=== PATIENT | male | born 1945 | race Caucasian/White ===

== ENCOUNTER 2021-12-04 15:03 | Inpatient (IN) | payer MEDICARE ==
[2021-12-04] MEDS ORDERED: ACETAMINOPHEN TAB 500 MG TAB PO STA (15:22)
[2021-12-04] MEDS ORDERED: SODIUM CHLORIDE 0.9% 1,000 ML IV STA (15:22)
[2021-12-04] MEDS ORDERED: ALBUTEROL HFA INHALER INHALATION STA (15:22)
[2021-12-04] MEDS ORDERED: IBUPROFEN 600 MG TAB PO STA (15:22)
[2021-12-04 15:36] LABS: HGB 16.3 gm/dL (13.0-17.5); MCH 30.4 pg (25.0-35.0); MCHC 33.2 g/dL (31.0-37.0); MCV 91.6 fL (80.0-100.0); Mean Platelet Volume 8.7; Platelet Count 220 k/uL (150-450); RBC 5.35 m/uL (4.30-5.90); WBC 11.3 k/uL (3.8-10.6)
[2021-12-04 15:45] LABS: Albumin 3.7 g/dL (3.5-5.0); Potassium 4.1 mmol/L (3.5-5.1); Total Bilirubin 0.8 mg/dL (0.2-1.3); Total Protein 6.7 g/dL (6.3-8.2)
--- NOTE | 2021-12-04 15:58 | ED ---
General Adult HPI - General Chief complaint: Upper Respiratory Infection Stated complaint: SOB, covid + Time Seen by Provider: 12/04/21 15:25 Source: patient, EMS, RN notes reviewed, old records reviewed Mode of arrival: EMS Limitations: no limitations - History of Present Illness Initial comments: This is a 76-year-old male who presents emergency Department stating that he started having some shortness of breath and feeling sick approximately 9 days ago. Patient states she's been to 2 emergency departments where he was diagnosed with COVID and given steroids to go home with. Patient states he woke up today and continued to feel bad and short of breath so decided come back to the emergency department. Patient denies any chest pain. Patient denies any fever or chills. Patient denies any abdominal pain patient denies nausea vomiting. Patient states he is on oxygen at home all the time. - Related Data Allergies Allergy/AdvReac Type Severity Reaction Status Date / Time No Known Allergies Allergy Verified 12/04/21 15:29 Review of Systems ROS Statement: Those systems with pertinent positive or pertinent negative responses have been documented in the HPI. ROS Other: All systems not noted in ROS Statement are negative. Past Medical History Past Medical History: COPD History of Any Multi-Drug Resistant Organisms: None Reported Past Surgical History: No Surgical Hx Reported Past Psychological History: No Psychological Hx Reported Smoking Status: Never smoker Past Alcohol Use History: None Reported Past Drug Use History: None Reported General Exam - General Exam Comments Initial Comments: GENERAL: Patient is well-developed and well-nourished. Patient is nontoxic and well- hydrated and is in mild distress. ENT: Neck is soft and supple. No significant lymphadenopathy is noted. Oropharynx is clear. Moist mucous membranes. Neck has full range of motion without eliciting any pain. EYES: The sclera were anicteric and conjunctiva were pink and moist. Extraocular movements were intact and pupils were equal round and reactive to light. Eyelids were unremarkable. PULMONARY: Unlabored respirations. Good breath sounds bilaterally. No audible rales rhonchi or wheezing was noted. CARDIOVASCULAR: There is a regular rate and rhythm without any murmurs gallops or rubs ABDOMEN: Soft and nontender with normal bowel sounds. SKIN: Skin is clear with no lesions or rashes and otherwise unremarkable. NEUROLOGIC: Patient is alert and oriented x3. Cranial nerves II through XII are grossly intact. Motor and sensory are also intact. Normal speech, volume and content. Symmetrical smile. MUSCULOSKELETAL: Normal extremities with adequate strength and full range of motion. No lower extremity swelling or edema. No calf tenderness. LYMPHATICS: No significant lymphadenopathy is noted PSYCHIATRIC: Normal psychiatric evaluation. Limitations: no limitations Course Vital Signs 12/04/21 12/04/21 12/04/21 15:15 16:11 16:20 Temperature 102.2 F H Pulse Rate 113 H 103 H Respiratory 22 26 H 26 H Rate Blood Pressure 145/82 108/80 O2 Sat by Pulse 95 89 L Oximetry Medical Decision Making - Medical Decision Making EKG shows sinus tachycardia at 1 13 bpm NH interval 132 QRS is 72 QT interval 3 50 QTC is 418. Patient's EKG shows no ST segment elevation or depression. X- ray shows right lower lobe infiltrate consistent with pneumonia. I spoke with sounds physician's he agreed to admit the patient and the patient wrote admitting orders. I started the patient on antibiotics in the department and continue them on the floor. New. Patient received 2 L of IV fluids. - Lab Data Result diagrams: 12/04/21 15:04 12/04/21 15:04 Lab Results 12/04/21 12/04/21 12/04/21 Range/Units 15:04 15:04 15:04 WBC 11.3 H (3.8-10.6) k/uL RBC 5.35 (4.30-5.90) m/uL Hgb 16.3 (13.0-17.5) gm/dL Hct 49.0 (39.0-53.0) % MCV 91.6 (80.0-100.0) fL MCH 30.4 (25.0-35.0) pg MCHC 33.2 (31.0-37.0) g/dL RDW 13.0 (11.5-15.5) % Plt Count 220 (150-450) k/uL MPV 8.7 Neutrophils % (Manual) 79 % Band Neuts % (Manual) 7 % Lymphocytes % (Manual) 2 % Monocytes % (Manual) 10 % Metamyelocytes % 3 % Myelocytes % 1 % Neutrophils # (Manual) 9.70 H (1.3-7.7) k/uL Lymphocytes # (Manual) 0.23 L (1.0-4.8) k/uL Monocytes # (Manual) 1.13 H (0-1.0) k/uL Metamyelocytes # (Man) 0.34 H (0) k/uL Myelocytes # (Manual) 0.11 H (0) k/uL Nucleated RBCs 0 (0-0) /100 WBC Manual Slide Review Performed RBC Morphology Normal Sodium 133 L (137-145) mmol/L Potassium 4.1 (3.5-5.1) mmol/L Chloride 96 L (98-107) mmol/L Carbon Dioxide 27 (22-30) mmol/L Anion Gap 10 mmol/L BUN 27 H (9-20) mg/dL Creatinine 1.11 (0.66-1.25) mg/dL Est GFR (CKD-EPI)AfAm 74 (>60 ml/min/1.73 sqM) Est GFR (CKD-EPI)NonAf 64 (>60 ml/min/1.73 sqM) Glucose 140 H (74-99) mg/dL Plasma Lactic Acid Morteza 3.6 H* (0.7-2.0) mmol/L Calcium 8.0 L (8.4-10.2) mg/dL Total Bilirubin 0.8 (0.2-1.3) mg/dL AST 50 (17-59) U/L ALT 26 (4-49) U/L Alkaline Phosphatase 74 (38-126) U/L Troponin I (0.000-0.034) ng/mL Total Protein 6.7 (6.3-8.2) g/dL Albumin 3.7 (3.5-5.0) g/dL 12/04/21 Range/Units 15:04 WBC (3.8-10.6) k/uL RBC (4.30-5.90) m/uL Hgb (13.0-17.5) gm/dL Hct (39.0-53.0) % MCV (80.0-100.0) fL MCH (25.0-35.0) pg MCHC (31.0-37.0) g/dL RDW (11.5-15.5) % Plt Count (150-450) k/uL MPV Neutrophils % (Manual) % Band Neuts % (Manual) % Lymphocytes % (Manual) % Monocytes % (Manual) % Metamyelocytes % % Myelocytes % % Neutrophils # (Manual) (1.3-7.7) k/uL Lymphocytes # (Manual) (1.0-4.8) k/uL Monocytes # (Manual) (0-1.0) k/uL Metamyelocytes # (Man) (0) k/uL Myelocytes # (Manual) (0) k/uL Nucleated RBCs (0-0) /100 WBC Manual Slide Review RBC Morphology Sodium (137-145) mmol/L Potassium (3.5-5.1) mmol/L Chloride (98-107) mmol/L Carbon Dioxide (22-30) mmol/L Anion Gap mmol/L BUN (9-20) mg/dL Creatinine (0.66-1.25) mg/dL Est GFR (CKD-EPI)AfAm (>60 ml/min/1.73 sqM) Est GFR (CKD-EPI)NonAf (>60 ml/min/1.73 sqM) Glucose (74-99) mg/dL Plasma Lactic Acid Morteza (0.7-2.0) mmol/L Calcium (8.4-10.2) mg/dL Total Bilirubin (0.2-1.3) mg/dL AST (17-59) U/L ALT (4-49) U/L Alkaline Phosphatase (38-126) U/L Troponin I <0.012 (0.000-0.034) ng/mL Total Protein (6.3-8.2) g/dL Albumin (3.5-5.0) g/dL Critical Care Time Critical Care Time: Yes Total Critical Care Time: 35 Disposition Clinical Impression: Pneumonia, Sepsis Disposition: ADMITTED IP TO THIS [facility] Referrals: Anna Lopez MD [Primary Care Provider] - 1-2 days Time of Disposition: 16:41
[2021-12-04 16:07] LABS: Band Neutrophils % 7 %; Lymphocytes # (M) 0.23 k/uL (1.0-4.8); Metamyelocytes # (M) 0.34 k/uL (0); Metamyelocytes % 3 %; Monocytes # (M) 1.13 k/uL (0-1.0); Myelocytes # (M) 0.11 k/uL (0); Myelocytes % 1 %; Neutrophils % (M) 79 %; Nucleated Red Blood Cells 0 /100 WBC (0-0); Total Cells Counted 200
[2021-12-04 16:08] LABS: RBC Morphology Normal
--- NOTE | 2021-12-04 16:11 | XR ---
EXAMINATION TYPE: XR chest 2V DATE OF EXAM: 12/04/2021 COMPARISON: NONE HISTORY: Shortness of breath and Covid positive TECHNIQUE: Frontal and lateral views of the chest are obtained. FINDINGS: There is hyperinflation lungs and flattening the diaphragms consistent with COPD. There ar e marked increased interstitial markings in lung bases bilaterally right greater than left and there are fluffy alveolar opacities in the lower lobes bilaterally, right greater than left. There is blun ting of the costophrenic angles which could be chronic in nature or reflect small pleural effusions. The heart size is normal and the pulmonary vasculature is not congested. The osseous structures are i ntact. IMPRESSION: 1. Findings suggestive of acute inflammation in the right lower lung zone, possibly pneumonia. 2. Chronic lung changes described above.
[2021-12-04] MEDS ORDERED: PNEUMONIA PROTOCOL UTILIZED 1 EACH MISC PO PRN (16:43)
[2021-12-04] MEDS ORDERED: AZITHROMYCIN 500 MG in SODIUM CHLORIDE 0.9% 250 ML IVPB STA (16:43)
[2021-12-04] MEDS ORDERED: NALOXONE 0.4 MG/ML 1 ML VIAL IV PRN (17:32)
[2021-12-04] MEDS ORDERED: ONDANSETRON 4 MG/2 ML VIAL IVP PRN (17:33)
[2021-12-04] MEDS ORDERED: HYDROcodone/APAP 5-325MG 1 EACH TAB PO PRN (17:33)
[2021-12-04] MEDS ORDERED: ACETAMINOPHEN TAB 325 MG TAB PO PRN (17:33)
[2021-12-04] MEDS ORDERED: MAG HYDROX/AL HYDROX/SIMETH 30 ML CUP PO PRN (17:33)
[2021-12-04] MEDS: SODIUM CHLORIDE 0.9% 1,000 ML IV SCH (17:38)
[2021-12-04] MEDS: dexAMETHasone 2 MG TAB PO SCH (18:26)
--- NOTE | 2021-12-04 18:35 | P.HPIM ---
History of Present Illness H&P Date: 12/04/21 Chief Complaint: Cough, SOB Patient is a 76-year-old male with PMH of COPD on 2 L home O2 that presents the ED for shortness of breath and wet cough. Symptoms have been ongoing for the past 7 days. Initially, patient reported rhinorrhea, itchy eyes and sore throat. He is also reported fever/chills, 2 episodes of NBNB nausea and vomiting, diarrhea that has since resolved. Patient reports progressively worsening shortness of breath over the past 7 days. When his symptoms did not improve this prompted him to come to the ED. He denies any headache, lower extremity edema, chest pain, palpitations, changes in urination. No changes in appetite or weight. He denies any dizziness, numbness/weakness/tingling of extremities. In the ED, he had a T-max of 102.2 Fahrenheit, pulse of 113, tachypnea with respiratory rate of 26 and O2 saturation of 89% on room air. He required 4 L NC to maintain O2 saturation greater than 92%. CBC showed leukocytosis of 13.3. CMP showed sodium of 133, chloride of 96, BUN of 27, glucose of 140 and calcium of 8. Troponin was less than 0.012 with EKG showing sinus tachycardia and no ST elevation. Lactic acid was 3.6. COVID-19 positive. Chest x-ray showing possible pneumonia in the right lower lobe. Patient is admitted as inpatient, greater than anticipated 48 hour admission for COVID-19 pneumonia and COPD exacerbation. General: [non toxic], [no distress], [appears at stated age] Derm: [warm], [dry] Head: [atraumatic], [normocephalic], [symmetric] Eyes: [EOMI], [no lid lag], [anicteric sclera] Mouth: [no lip lesion], [mucus membranes moist] Cardiovascular: [S1S2 reg], [no murmur], [positive DP pulse bilateral] Lungs: [Coarse breath sounds bilateral], [no rhonchi, no rales] , [no accessory muscle use] Abdominal: [soft], [ nontender to palpation], [no guarding], [no appreciable organomegaly] Ext: [no gross muscle atrophy], [no edema], [no contractures] Neuro: [ CN II-XI grossly intact], [no focal neuro deficits] Psych: [Alert], [oriented], [appropriate affect] #Acute on chronic hypoxic respiratory failure #Sepsis #COVID-19 pneumonia #COPD exacerbation #Lactic acidosis #Hyponatremia #Elevated BUN Patient presents with increased oxygen requirements. He is currently requiring 4 L NC to maintain O2 saturation greater than 92%. He does meet sepsis criteria with fever, tachycardia, tachypnea, leukocytosis and positive source of infection. He'll be started on Rocephin and azithromycin for concerns or co mmunity acquired pneumonia. Blood and sputum culture will be obtained. He'll be placed on telemetry monitoring. Tylenol be ordered as needed for fever. Mucinex as ordered. Patient will be started on Decadron for COVID-19 pneumonia. Albuterol inhaler as needed for shortness of breath and wheezing. Symbicort will be restarted. His lactic acidosis, hyponatremia and elevated BUN is likely related to dehydration. He'll be started on normal saline at 100 mL/h. BMP will be repeated tomorrow morning. Patient names his daughter decision maker if he can make decisions for himself. Patient would like to be full code. DVT prophylaxis: [Lovenox] Discussed with: [Patient and daughter] Anticipated discharge: [2-3 days] Anticipated discharge place: [Home] A total of [60] minutes was spent on the care of this complex patient more than 50% of the time was spent in counseling and care coordination. Review of Systems All systems: negative Past Medical History Past Medical History: COPD History of Any Multi-Drug Resistant Organisms: None Reported Past Surgical History: No Surgical Hx Reported Past Psychological History: No Psychological Hx Reported Smoking Status: Never smoker Past Alcohol Use History: None Reported Past Drug Use History: None Reported Medications and Allergies Home Medications Medication Instructions Recorded Confirmed Type Albuterol Sulfate [Albuterol 1 puff INHALATION RT-Q4H PRN 12/04/21 12/04/21 History Sulfate Hfa] Budesonide/Formoterol Fumarate 2 puff INHALATION RT-BID 12/04/21 12/04/21 History [Symbicort 160-4.5 Mcg Inhaler] Allergies Allergy/AdvReac Type Severity Reaction Status Date / Time No Known Allergies Allergy Verified 12/04/21 16:52 Physical Exam Vitals: Vital Signs Temp Pulse Resp BP Pulse Ox 12/04/21 17:30 98.3 F 86 20 105/68 94 L 12/04/21 16:20 26 H 12/04/21 16:11 103 H 26 H 108/80 89 L 12/04/21 15:15 102.2 F H 113 H 22 145/82 95 Intake and Output 12/04/21 12/04/21 12/04/21 06:59 14:59 22:59 Other: Weight 63.503 kg Results CBC & Chem 7: 12/04/21 15:04 12/04/21 15:04 Labs: Abnormal Lab Results - Last 24 Hours (Table) 12/04/21 12/04/21 12/04/21 Range/Units 15:04 15:04 15:04 WBC 11.3 H (3.8-10.6) k/uL Neutrophils # (Manual) 9.70 H (1.3-7.7) k/uL Lymphocytes # (Manual) 0.23 L (1.0-4.8) k/uL Monocytes # (Manual) 1.13 H (0-1.0) k/uL Metamyelocytes # (Man) 0.34 H (0) k/uL Myelocytes # (Manual) 0.11 H (0) k/uL Sodium 133 L (137-145) mmol/L Chloride 96 L (98-107) mmol/L BUN 27 H (9-20) mg/dL Glucose 140 H (74-99) mg/dL Plasma Lactic Acid Morteza 3.6 H* (0.7-2.0) mmol/L Calcium 8.0 L (8.4-10.2) mg/dL Coronavirus (PCR) (Not Detectd) 12/04/21 Range/Units 17:35 WBC (3.8-10.6) k/uL Neutrophils # (Manual) (1.3-7.7) k/uL Lymphocytes # (Manual) (1.0-4.8) k/uL Monocytes # (Manual) (0-1.0) k/uL Metamyelocytes # (Man) (0) k/uL Myelocytes # (Manual) (0) k/uL Sodium (137-145) mmol/L Chloride (98-107) mmol/L BUN (9-20) mg/dL Glucose (74-99) mg/dL Plasma Lactic Acid Morteza (0.7-2.0) mmol/L Calcium (8.4-10.2) mg/dL Coronavirus (PCR) Detected A (Not Detectd) Thrombosis Risk Factor Assmnt - Choose All That Apply Any of the Below Risk Factors Present?: Yes Each Factor Represents 1 point: Abnormal pulmonary function (COPD), Sepsis (< 1month) Other Risk Factors: Yes Each Risk Factor Represents 2 Points: Age 61-74 years Thrombosis Risk Factor Assessment Total Risk Factor Score: 4 Thrombosis Risk Factor Assessment Level: Moderate Risk
[2021-12-04] MEDS: guaiFENesin 600 MG TABLET.ER PO SCH (21:05)
[2021-12-04] MEDS: SYMBICORT 160-4.5 MCG INHALER INHALATION SCH (21:15)
[2021-12-05] MEDS: SODIUM CHLORIDE 0.9% 1,000 ML IV SCH ×2 (05:47→19:39)
[2021-12-05] MEDS: guaiFENesin 600 MG TABLET.ER PO SCH ×2 (08:08→22:02)
[2021-12-05] MEDS: ENOXAPARIN 40 MG/0.4 ML SYRINGE SQ SCH (08:08)
[2021-12-05] MEDS: dexAMETHasone 2 MG TAB PO SCH (08:08)
--- NOTE | 2021-12-05 08:51 | XR ---
EXAMINATION TYPE: XR chest 1V portable DATE OF EXAM: 12/05/2021 COMPARISON: Chest x-ray 12/05/2019 HISTORY: Pneumonia TECHNIQUE: Single frontal view of the chest is obtained. FINDINGS: There is airspace disease at the right lung base. There is underlying emphysematous change , apical bullous change suspected. No evident pneumothorax or pleural effusion. Cardiac mediastinal s ilhouette is stable. IMPRESSION: Findings consistent with right lower lobe pneumonia.
[2021-12-05 09:17] LABS: Basophils # (A) 0 X 10*3/uL (0.00-0.10); Basophils % (A) 0 %; Eosinophils # (A) 0 X 10*3/uL (0.04-0.35); Eosinophils % (A) 0 %; HCT 48.7 % (39.6-50.0); HGB 15.3 g/dL (13.0-17.0); Immature Grans, Automated 0.5 %; Lymphocytes # (A) 0.52 X 10*3/uL (0.90-5.00); Lymphocytes % (A) 6.3 %; MCH 29.4 pg (27.0-32.0); MCHC 31.4 g/dL (32.0-37.0); MCV 93.7 fL (80.0-97.0); Mean Platelet Volume 11.5 fL (9.5-12.2); Monocytes # (A) 0.45 X 10*3/uL (0.20-1.00); Monocytes % (A) 5.4 %; NRBC Per 100 WBC 0 /100 WBCS (0.0-0.0); Neutrophils % (A) 87.8 %; Platelet Count 179 X 10*3/uL (140-440); RDW 12.9 % (11.5-14.5); WBC 8.31 X 10*3/uL (4.50-10.00)
[2021-12-05 09:36] LABS: African American GFR (CKD) 79.5 (60.0-200.0); Anion Gap 13.2 mmol/L (10.00-18.00); BUN/Creat Ratio 25.24 Ratio (12.00-20.00); Blood Urea Nitrogen 26.5 mg/dL (9.0-27.0); Calcium 7.5 mg/dL (8.7-10.3); Carbon Dioxide 21.6 mmol/L (20.0-27.5); Non-African American GFR(CKD) 68.6 (60.0-200.0); Potassium 4.5 mmol/L (3.5-5.5)
[2021-12-05] MEDS: SYMBICORT 160-4.5 MCG INHALER INHALATION SCH ×2 (09:45→20:46)
--- NOTE | 2021-12-05 13:54 | P.CNPUL ---
History of Present Illness Consult date: 12/05/21 Requesting physician: Barbra Celaya Reason for consult: dyspnea Chief complaint: Shortness of breath, fever, chills History of present illness: 36-year-old white male patient with past medical history of COPD on home oxygen usually wears 2 L on a regular basis, and patient denies any other significant medical history. Patient came into the emergency department on 12/04/2021 with 2 week history of not feeling well, patient states she first started with a runny nose, itchy eyes, sore throat. He reported fever and chills, mild body aches, 2 episodes of nausea and vomiting, his diarrhea has resolved. Patient reports progressive shortness of breath with congestive cough. In the emergency department he was febrile with a T-max of 102.2F. He tested positive for COVID 19. He denies being vaccinated for COVID-19. He states even the influenza vaccine makes him sick, and for that reason he did not want to receive COVID 119 vaccine. His O2 saturations were 89% on room air, he was placed on 4 L of supplemental oxygen, he is mildly tachycardic with a rate of 113, but sinus mechanism. His chest x-ray showed alveolar opacities in the lower lobes bilaterally, right greater than left, and blunting of the costophrenic angles that could reflect small pleural effusions. His admission labs showed a white blood cell count of 11.3, hemoglobin of 16.3, sodium of 133, potassium is 4.1, chloride is 96, CO2 is 27, BUN is 27 creatinine is 1.11, troponins were negative 2 at less than 0.012, lactic acid was 3.6, LFTs were within normal limits. Patient's inflammatory markers including ferritin, and LDH were only mildly elevated at 391 and 302 respectively. Patient was outside the window for Remdesivir, she was started on empiric antibiotics in the form of azithromycin and Rocephin. Today he is requiring 4 L of oxygen his breathing comfortably, he is resting in bed, pulse ox of 90-99%, his fever pattern has improved since admission, his temp is 97.6-99.3 this morning. No chest pain or hemoptysis, does report shortness of breath with exertion. Is also started on Decadron 6 mg daily, Mucinex, and Lovenox for prophylaxis. Blood cultures, bronchial stenosis sputum cultures are pending at this time. Review of Systems All systems: negative Constitutional: Reports fatigue, Reports fever, Denies chills Eyes: denies blurred vision, denies pain Ears, nose, mouth and throat: Denies headache, Denies sore throat Cardiovascular: Denies chest pain, Denies shortness of breath Respiratory: Reports cough, Reports dyspnea Gastrointestinal: Reports nausea, Reports vomiting, Denies abdominal pain, Denies diarrhea Musculoskeletal: Denies myalgias Integumentary: Denies pruritus, Denies rash Neurological: Denies numbness, Denies weakness Psychiatric: Denies anxiety, Denies depression Endocrine: Denies fatigue, Denies weight change Past Medical History Past Medical History: COPD History of Any Multi-Drug Resistant Organisms: None Reported Past Surgical History: No Surgical Hx Reported Past Psychological History: No Psychological Hx Reported Smoking Status: Never smoker Past Alcohol Use History: None Reported Past Drug Use History: None Reported Medications and Allergies Home Medications Medication Instructions Recorded Confirmed Type Albuterol Sulfate [Albuterol 1 puff INHALATION RT-Q4H PRN 12/04/21 12/04/21 History Sulfate Hfa] Budesonide/Formoterol Fumarate 2 puff INHALATION RT-BID 12/04/21 12/04/21 His tory [Symbicort 160-4.5 Mcg Inhaler] Allergies Allergy/AdvReac Type Severity Reaction Status Date / Time No Known Allergies Allergy Verified 12/04/21 16:52 Physical Exam Vitals: Vital Signs Temp Pulse Pulse Resp BP BP Pulse Ox 12/05/21 07:45 69 18 12/05/21 07:28 99.3 F 69 18 141/71 98 12/05/21 05:51 97.6 F 60 17 124/72 99 12/05/21 03:24 97.5 F L 61 16 126/76 99 12/04/21 20:50 86 18 12/04/21 18:00 98.6 F 86 18 111/72 96 12/04/21 17:30 98.3 F 86 20 105/68 94 L 12/04/21 16:20 26 H 12/04/21 16:11 103 H 26 H 108/80 89 L 12/04/21 15:15 102.2 F H 113 H 22 145/82 95 Intake and Output 12/04/21 12/05/21 12/05/21 22:59 06:59 14:59 Output Total 1099 Balance -1099 Output: Urine 550 Post Void Residual 549 Other: Voiding Method Urinal Weight 63.503 kg GENERAL EXAM: Alert, pleasant, 76-year-old, on 4 L of oxygen pulse ox is 98% comfortable in no apparent distress. HEAD: Normocephalic/atraumatic. EYES: Normal reaction of pupils, equal size. Conjunctiva pink, sclera white. NOSE: Clear with pink turbinates. THROAT: No erythema or exudates. NECK: No masses, no JVD, no thyroid enlargement, no adenopathy. CHEST: No chest wall deformity. Symmetrical expansion. LUNGS: Equal air entry with bilateral crackles CVS: Regular rate and rhythm, normal S1 and S2, no gallops, no murmurs, no rubs ABDOMEN: Soft, nontender. No hepatosplenomegaly, normal bowel sounds, no guarding or rigidity. EXTREMITIES: No clubbing, no edema, no cyanosis, 2+ pulses and upper and lower extremities. MUSCULOSKELETAL: Muscle strength and tone normal. SPINE: No scoliosis or deformity SKIN: No rashes CENTRAL NERVOUS SYSTEM: Alert and oriented -3. No focal deficits, tone is normal in all 4 extremities. PSYCHIATRIC: Alert and oriented -3. Appropriate affect. Intact judgment and insight. Results - Laboratory Findings CBC and BMP: 12/05/21 06:34 12/05/21 06:34 PT/INR, D-dimer D-Dimer 0.33 mg/L FEU (<0.60) 12/05/21 06:34 Abnormal lab findings: Abnormal Labs 12/04/21 12/04/21 12/04/21 15:04 15:04 15:04 WBC 11.3 H MCHC Neutrophils # (Manual) 9.70 H Lymphocytes # Lymphocytes # (Manual) 0.23 L Monocytes # (Manual) 1.13 H Eosinophils # Metamyelocytes # (Man) 0.34 H Myelocytes # (Manual) 0.11 H Sodium 133 L Chloride 96 L BUN 27 H BUN/Creatinine Ratio Glucose 140 H Plasma Lactic Acid Morteza 3.6 H* Calcium 8.0 L Ferritin Lactate Dehydrogenase Coronavirus (PCR) 12/04/21 12/05/21 12/05/21 17:35 06:34 06:34 WBC MCHC 31.4 L Neutrophils # (Manual) Lymphocytes # 0.52 L Lymphocytes # (Manual) Monocytes # (Manual) Eosinophils # 0 L Metamyelocytes # (Man) Myelocytes # (Manual) Sodium Chloride BUN BUN/Creatinine Ratio 25.24 H Glucose 131 H Plasma Lactic Acid Morteza Calcium 7.5 L Ferritin 391.0 H Lactate Dehydrogenase 302 H Coronavirus (PCR) Detected A - Diagnostic Findings Chest x-ray: report reviewed, image reviewed Assessment and Plan Plan: Assessment: #1. Acute hypoxic respiratory failure related to acute COVID-19 infection, and possibility of bacterial superinfection is not entirely excluded. Patient presents with 2 week history of fever, chills, worsening shortness of breath, body aches, he is not vaccinated against COVID-19. Outside the window for Remdesivir. Chest x-ray shows airspace disease at the right lung base on today's exam #2. Lactic acidosis, resolved with IV hydration likely related to dehydration, and possible sepsis #3. History of COPD on home oxygen at 2 L Plan: Continue same antibiotics Patient is outside the window for Remdesivir or Paxlovid Inflammatory markers are mildly elevated Continue Decadron Continue prophylactic Lovenox We'll obtain a d-dimer Continue current therapies We'll follow I have personally seen and examined the patient, performed the documentation and the assessment and plan as written. Number of minutes spent on the visit: [15] Time with Patient: Greater than 30
--- NOTE | 2021-12-05 14:00 | P.PN ---
Subjective Progress Note Date: 12/05/21 Principal diagnosis: COVID-19 pneumonia Patient was seen and examined. No acute events overnight. He reports considerable improvement in his breathing since admission. Currently on 4 L nasal cannula. He denies any chest pain or palpitations. Cough is improved. No nausea or vomiting. No fever or chills. Objective - Vital Signs Vital signs: Vital Signs Temp 99.3 F 12/05/21 07:28 Pulse 69 12/05/21 07:45 Resp 18 12/05/21 07:45 BP 141/71 12/05/21 07:28 Pulse Ox 98 12/05/21 07:28 Intake & Output 12/04/21 12/05/21 12/05/21 18:59 06:59 18:59 Output Total 1099 Balance -1099 Weight 63.503 kg Output: Urine 550 Post Void Residual 549 Other: Voiding Method Urinal - Exam General: [non toxic], [no distress], [appears at stated age] Derm: [warm], [dry] Head: [atraumatic], [normocephalic], [symmetric] Eyes: [EOMI], [no lid lag], [anicteric sclera] Mouth: [no lip lesion], [mucus membranes moist] Cardiovascular: [S1S2 reg], [no murmur] Lungs: [Decreased breath sounds bilateral], [no rhonchi, no rales] , [no accessory muscle use] Abdominal: [soft], [ nontender to palpation], [no guarding], [no appreciable organomegaly] Ext: [no gross muscle atrophy], [no edema], [no contractures] Neuro: [no focal neuro deficits] Psych: [Alert], [oriented], [appropriate affect] - Labs CBC & Chem 7: 12/05/21 06:34 12/05/21 06:34 Labs: Abnormal Lab Results - Last 24 Hours (Table) 12/04/21 12/04/21 12/04/21 Range/Units 15:04 15:04 15:04 WBC 11.3 H (3.8-10.6) k/uL MCHC (32.0-37.0) g/dL Neutrophils # (Manual) 9.70 H (1.3-7.7) k/uL Lymphocytes # (0.90-5.00) X 10*3/uL Lymphocytes # (Manual) 0.23 L (1.0-4.8) k/uL Monocytes # (Manual) 1.13 H (0-1.0) k/uL Eosinophils # (0.04-0.35) X 10*3/uL Metamyelocytes # (Man) 0.34 H (0) k/uL Myelocytes # (Manual) 0.11 H (0) k/uL Sodium 133 L (137-145) mmol/L Chloride 96 L (98-107) mmol/L BUN 27 H (9-20) mg/dL BUN/Creatinine Ratio (12.00-20.00) Ratio Glucose 140 H (74-99) mg/dL Plasma Lactic Acid Morteza 3.6 H* (0.7-2.0) mmol/L Calcium 8.0 L (8.4-10.2) mg/dL Ferritin (22.0-322.0) ng/mL Lactate Dehydrogenase (120-246) U/L Coronavirus (PCR) (Not Detectd) 12/04/21 12/05/21 12/05/21 Range/Units 17:35 06:34 06:34 WBC (3.8-10.6) k/uL MCHC 31.4 L (32.0-37.0) g/dL Neutrophils # (Manual) (1.3-7.7) k/uL Lymphocytes # 0.52 L (0.90-5.00) X 10*3/uL Lymphocytes # (Manual) (1.0-4.8) k/uL Monocytes # (Manual) (0-1.0) k/uL Eosinophils # 0 L (0.04-0.35) X 10*3/uL Metamyelocytes # (Man) (0) k/uL Myelocytes # (Manual) (0) k/uL Sodium (137-145) mmol/L Chloride (98-107) mmol/L BUN (9-20) mg/dL BUN/Creatinine Ratio 25.24 H (12.00-20.00) Ratio Glucose 131 H (74-99) mg/dL Plasma Lactic Acid Morteza (0.7-2.0) mmol/L Calcium 7.5 L (8.4-10.2) mg/dL Ferritin 391.0 H (22.0-322.0) ng/mL Lactate Dehydrogenase 302 H (120-246) U/L Coronavirus (PCR) Detected A (Not Detectd) Assessment and Plan Assessment: #Acute on chronic hypoxic respiratory failure #Sepsis #COVID-19 pneumonia #COPD exacerbation Resolved: Lactic acidosis, Hyponatremia, Elevated BUN Patient's leukocytosis has resolved. His hyponatremia, lactic acidosis and elevated BUN has resolved with IV hydration. Pulmonology consulted, outside window for Remdesivir or Paxlovid. LDH, ferritin mildly elevated. D-dimer within normal limits. Continue Rocephin and azithromycin concerns a committed acquired pneumonia. Continue Decadron by mouth. Albuterol as needed for shortness of breath and wheezing. Case discussed with nursing, attempt to wean oxygen to baseline 2 L. He is pending clinical improvement. DVT prophylaxis: [Lovenox] Discussed with: [Patient and daughter] Anticipated discharge: [1-2 days] Anticipated discharge place: [Home] A total of [60] minutes was spent on the care of this complex patient more than 50% of the time was spent in counseling and care coordination.
[2021-12-05] MEDS: AZITHROMYCIN 500 MG TAB PO SCH (18:07)
[2021-12-05] MEDS: TAMSULOSIN 0.4 MG CAP.ER.24H PO SCH (19:53)
[2021-12-06] MEDS: dexAMETHasone 2 MG TAB PO SCH (07:32)
[2021-12-06] MEDS: TAMSULOSIN 0.4 MG CAP.ER.24H PO SCH (07:32)
[2021-12-06] MEDS: ENOXAPARIN 40 MG/0.4 ML SYRINGE SQ SCH (07:32)
[2021-12-06] MEDS: guaiFENesin 600 MG TABLET.ER PO SCH ×2 (07:32→20:52)
[2021-12-06 07:45] LABS: Appearance,Urine Clear (Clear); Bilirubin,Urine Negative (Negative); Blood,Urine Moderate (Negative); Color,Urine Yellow; Glucose,Urine (UA) Trace (Negative); Ketones,Urine 1+ (Negative); Leukocyte Esterase,Urine Negative (Negative); Mucus,Urine Rare /hpf; Nitrite,Urine Negative (Negative); PH, Urine 6.5 (5.0-8.0); Protein,Urine 1+ (Negative); RBC,Urine 20 /hpf (0-5); Specific Gravity,Urine 1.027 (1.001-1.035); Squamous Epithelial Cell,Urine <1 /hpf (0-4); Urobilinogen,Urine <2.0 mg/dL (<2.0); WBC,Urine 2 /hpf (0-5)
[2021-12-06] MEDS: SYMBICORT 160-4.5 MCG INHALER INHALATION SCH ×2 (09:06→19:19)
[2021-12-06] MEDS: ALBUTEROL HFA INHALER INHALATION PRN ×3 (09:06→19:19)
[2021-12-06 09:59] LABS: C Reactive Protein 9.1 mg/dL (0.00-0.80)
--- NOTE | 2021-12-06 12:05 | P.DS ---
Providers Date of admission: 12/04/21 16:43 Expected date of discharge: 12/06/21 Attending physician: Danielle Huggins MD Consults: 12/05/21 08:05 Consult Physician Routine Consulting Provider: Mario Corona Consult Reason/Comments: COVID 19, COPD Do you want consulting provider notified?: Yes Primary care physician: Anna Lopez MD Hospital Course: Patient is a 76-year-old male with PMH of COPD on 2 L home O2 that presents the ED for shortness of breath and wet cough. Symptoms have been ongoing for the past 7 days. Initially, patient reported rhinorrhea, itchy eyes and sore throat. He is also reported fever/chills, 2 episodes of NBNB nausea and vomiting, diarrhea that has since resolved. Patient reports progressively worsening shortness of breath over the past 7 days. When his symptoms did not improve this prompted him to come to the ED. He denies any headache, lower extremity edema, chest pain, palpitations, changes in urination. No changes in appetite or weight. He denies any dizziness, numbness/weakness/tingling of extremities. In the ED, he had a T-max of 102.2 Fahrenheit, pulse of 113, tachypnea with respiratory rate of 26 and O2 saturation of 89% on room air. He required 4 L NC to maintain O2 saturation greater than 92%. CBC showed leukocytosis of 13.3. CMP showed sodium of 133, chloride of 96, BUN of 27, glucose of 140 and calcium of 8. Troponin was less than 0.012 with EKG showing sinus tachycardia and no ST elevation. Lactic acid was 3.6. COVID-19 positive. Chest x-ray showing possible pneumonia in the right lower lobe. Patient is admitted as inpatient, greater than anticipated 48 hour admission for COVID-19 pneumonia and COPD exacerbation. His lactic acidosis, hyponatremia and elevated BUN resolved with IV hydration. Patient was started on Decadron. He was started on Rocephin and azithromycin for concerns for community-acquired pneumonia. Inflammatory labs were elevated including pro-calcitonin, CRP, ferritin, LDH. His d-dimer was negative. He was given albuterol as needed for shortness of breath and wheezing. He did have some urinary retention which required straight cath. This was thought to be r elated to BPH. He was started on Flomax by mouth and urinalysis was obtained. UA showed moderate blood, negative for nitrite or leukocyte esterase. Pulmonology was consulted and followed the patient during his hospitalization. Pulmonology cleared the patient for discharge on Decadron and Levaquin for 7 more days. DME order was placed for nebulizer. Patient reported urinating freely after initiation of Flomax. He was advised to follow-up with his PCP within 1-2 days of discharge. Follow up with pulmonology in 2 weeks of discharge. He was advised to follow-up with his PCP with regard to hematuria noted on urinalysis and further management of his urinary retention. Patient verbalized understanding of the plan. Patient was seen and examined. Patient reported significant improvement in his breathing. He continues to report shortness of breath with exertion. He was at baseline 2 L NC saturating mid 90s. Home O2 eval was performed and pending at the time of this note. This complex discharge took about 45 minutes to complete. General: [non toxic], [no distress], [appears at stated age] Derm: [warm], [dry] Head: [atraumatic], [normocephalic], [symmetric] Eyes: [EOMI], [no lid lag], [anicteric sclera] Mouth: [no lip lesion], [mucus membranes moist] Cardiovascular: [S1S2 reg], [no murmur] Lungs: [Decreased breath sounds bilateral], [no rhonchi, no rales] , [no accessory muscle use] Ext: [no gross muscle atrophy], [no edema], [no contractures] Neuro: [no focal neuro deficits] Psych: [Alert], [oriented], [appropriate affect] Discharge Diagnosis: #Acute on chronic hypoxic respiratory failure #Sepsis #COVID-19 pneumonia #COPD exacerbation #Urinary retention #Hematuria Resolved: Lactic acidosis, Hyponatremia, Elevated BUN Pertinent Studies: Chest X ray EKG Procedures: Straight cath for urinary retention. Patient Condition at Discharge: Stable Plan - Discharge Summary New Discharge Prescriptions: New Levofloxacin [Levaquin] 750 mg PO DAILY 7 Days #7 tab dexAMETHasone ORAL [Hexadrol] 6 mg PO DAILY tab Ipratropium-Albuterol Nebulize [Duoneb 0.5 mg-3 mg/3 ml Soln] 3 ml INHALATION TID PRN #90 ml PRN Reason: Shortness Of Breath Dexamethasone [Decadron] 6 mg PO DAILY 7 Days #7 tablet Tamsulosin [Flomax] 0.4 mg PO PC-BRKFST #30 guaiFENesin [Mucinex] 600 mg PO Q12HR #14 tablet Continue Budesonide/Formoterol Fumarate [Symbicort 160-4.5 Mcg Inhaler] 2 puff INHALATION RT-BID Albuterol Sulfate [Albuterol Sulfate Hfa] 1 puff INHALATION RT-Q4H PRN PRN Reason: Shortness Of Breath Discharge Medication List Albuterol Sulfate [Albuterol Sulfate Hfa] 1 puff INHALATION RT-Q4H PRN 12/04/21 [History] Budesonide/Formoterol Fumarate [Symbicort 160-4.5 Mcg Inhaler] 2 puff INHALATION RT-BID 12/04/21 [History] Dexamethasone [Decadron] 6 mg PO DAILY 7 Days #7 tablet 12/06/21 [Rx] Ipratropium-Albuterol Nebulize [Duoneb 0.5 mg-3 mg/3 ml Soln] 3 ml INHALATION TID PRN #90 ml 12/06/21 [Rx] Levofloxacin [Levaquin] 750 mg PO DAILY 7 Days #7 tab 12/06/21 [Rx] Tamsulosin [Flomax] 0.4 mg PO PC-BRKFST #30 12/06/21 [Rx] dexAMETHasone ORAL [Hexadrol] 6 mg PO DAILY tab 12/06/21 [Rx] guaiFENesin [Mucinex] 600 mg PO Q12HR #14 tablet 12/06/21 [Rx] Follow up Appointment(s)/Referral(s): Mario Corona MD [STAFF PHYSICIAN] - 2 Weeks Anna Lopez MD [Primary Care Provider] - 1-2 days Activity/Diet/Wound Care/Special Instructions: Diet: Regular FU with your PCP within 1-2 days of discharge. FU with Pulmonology within 2 weeks of discharge. Take all medications as advised. Come back to the ED for worsening Shortness of breath, O2 saturation < 88% (while on your 2L home O2) that does not improve with rest. Discharge Disposition: HOME SELF-CARE
--- NOTE | 2021-12-06 12:06 | P.PN ---
Subjective Progress Note Date: 12/06/21 Principal diagnosis: Shortness of breath, fever, chills 36-year-old white male patient with past medical history of COPD on home oxygen usually wears 2 L on a regular basis, and patient denies any other significant medical history. Patient came into the emergency department on 12/04/2021 with 2 week history of not feeling well, patient states she first started with a runny nose, itchy eyes, sore throat. He reported fever and chills, mild body aches, 2 episodes of nausea and vomiting, his diarrhea has resolved. Patient reports progressive shortness of breath with congestive cough. In the emergency department he was febrile with a T-max of 102.2F. He tested positive for COVID 19. He denies being vaccinated for COVID-19. He states even the influenza vaccine makes him sick, and for that reason he did not want to receive COVID 119 vaccine. His O2 saturations were 89% on room air, he was placed on 4 L of supplemental oxygen, he is mildly tachycardic with a rate of 113, but sinus mechanism. His chest x-ray showed alveolar opacities in the lower lobes bilaterally, right greater than left, and blunting of the costophrenic angles that could reflect small pleural effusions. His admission labs showed a white blood cell count of 11.3, hemoglobin of 16.3, sodium of 133, potassium is 4.1, chloride is 96, CO2 is 27, BUN is 27 creatinine is 1.11, troponins were negative 2 at less than 0.012, lactic acid was 3.6, LFTs were within normal limits. Patient's inflammatory markers including ferritin, and LDH were only mildly elevated at 391 and 302 respectively. Patient was outside the window for Remdesivir, she was started on empiric antibiotics in the form of azithromycin and Rocephin. Today he is requiring 4 L of oxygen his breathing comfortably, he is resting in bed, pulse ox of 90-99%, his fever pattern has improved since admission, his temp is 97.6-99.3 this morning. No chest pain or hemoptysis, does report shortness of breath with exertion. Is also started on Decadron 6 mg daily, Mucinex, and Lovenox for prophylaxis. Blood cultures, bronchial stenosis sputum cultures are pending at this time. On 12/06/2021 patient in follow-up on medical surgical floor. His awake and alert, in no acute distress, he is on 2 L of oxygen pulse ox is 94-96%, does not appear to be in any acute distress, no worsening dyspnea, no acute events overnight, no complaints of chest discomfort. T-max is 98.6 the last 24 hours. Blood cultures are negative at the 24-hour tylor. Patient remains on empiric antibiotics the form of azithromycin and Rocephin, his pro-calcitonin level Did Come Back Elevated at 0.46 Suggesting presence of bacterial infection. His LDH is 441, and CRP is elevated at 9.10. Urinalysis did not any clear evidence of infection. D-dimer was normal at 0.38 patient remains on prophylactic dose Lovenox 40 mg daily, remains on Decadron 6 mg daily, Mucinex, and inhaled bronchodilators. Tolerating oral intake, no nausea vomiting or diarrhea, no abdominal pain. Objective - Vital Signs Vital signs: Vital Signs Temp 98 F 12/06/21 09:41 Pulse 85 12/06/21 09:41 Resp 18 12/06/21 09:41 BP 124/70 12/06/21 09:41 Pulse Ox 91 L 12/06/21 09:41 Intake & Output 12/05/21 12/06/21 12/06/21 18:59 06:59 18:59 Intake Total 500 Balance 500 Intake: Intake, IV Titration 50 Amount cefTRIAXone 2 gm In 50 Sodium Chloride 0.9% 50 ml @ 100 mls/hr IVPB Q24HR [facility] Rx#:[id number] Oral 450 Other: Voiding Method Urinal Toilet Toilet # Voids 1 1 1 # Bowel Movements 1 - Exam GENERAL EXAM: Alert, pleasant, 76-year-old, on 2 L of oxygen pulse ox is 91% comfortable in no apparent distress. HEAD: Normocephalic/atraumatic. EYES: Normal reaction of pupils, equal size. Conjunctiva pink, sclera white. NOSE: Clear with pink turbinates. THROAT: No erythema or exudates. NECK: No masses, no JVD, no thyroid enlargement, no adenopathy. CHEST: No chest wall deformity. Symmetrical expansion. LUNGS: Equal air entry with bilateral crackles CVS: Regular rate and rhythm, normal S1 and S2, no gallops, no murmurs, no rubs ABDOMEN: Soft, nontender. No hepatosplenomegaly, normal bowel sounds, no guarding or rigidity. EXTREMITIES: No clubbing, no edema, no cyanosis, 2+ pulses and upper and lower extremities. MUSCULOSKELETAL: Muscle strength and tone normal. SPINE: No scoliosis or deformity SKIN: No rashes CENTRAL NERVOUS SYSTEM: Alert and oriented -3. No focal deficits, tone is normal in all 4 extremities. PSYCHIATRIC: Alert and oriented -3. Appropriate affect. Intact judgment and insight. - Labs CBC & Chem 7: 12/05/21 06:34 12/05/21 06:34 Labs: Abnormal Lab Results - Last 24 Hours (Table) 12/05/21 12/06/21 12/06/21 Range/Units 06:34 05:15 07:15 Lactate Dehydrogenase 441 H (120-246) U/L C-Reactive Protein 9.10 H (0.00-0.80) mg/dL Procalcitonin 0.46 H (0.02-0.09) ng/mL Urine Protein 1+ H (Negative) Urine Glucose (UA) Trace H (Negative) Urine Ketones 1+ H (Negative) Urine Blood Moderate H (Negative) Urine RBC 20 H (0-5) /hpf Urine Mucus Rare H (None) /hpf Microbiology - Last 24 Hours (Table) 12/04/21 17:38 Blood Culture - Preliminary Blood No Growth after 24 hours 12/04/21 17:20 Blood Culture - Preliminary Blood No Growth after 24 hours Assessment and Plan Plan: Assessment: #1. Acute hypoxic respiratory failure related to acute COVID-19 infection, and possibility of bacterial superinfection is not entirely excluded. Patient presents with 2 week history of fever, chills, worsening shortness of breath, body aches, he is not vaccinated against COVID-19. Outside the window for Remdesivir. Chest x-ray shows airspace disease at the right lung base on today's exam. Pro-calcitonin level was elevated at 0.46, supporting possibility of bacterial superinfection, possibly community-acquired pneumonia, patient remains on azithromycin and Rocephin #2. Lactic acidosis, resolved with IV hydration likely related to dehydration, and possible sepsis #3. History of COPD on home oxygen at 2 L Plan: Patient has been stable overnight No worsening dyspnea Continues on 2 L of oxygen Afebrile, vital signs are stable Increase activity as tolerated Continue antibiotics Continue Decadron for a total of 10 day course Continue prophylactic Lovenox Today's labs have been reviewed From pulmonary perspective patient is improving, He could be considered for discharge home today, obtain home oxygen assessment Patient will be sent home on seven-day course of Levaquin 750 mg, seven-day course of oral Decadron 6 mg daily, he will continue on Symbicort, nebulized treatments will be added with DuoNeb Outpatient follow-up with Dr. Garza in the office in 2 weeks I have personally seen and examined the patient, performed the documentation and the assessment and plan as written. Number of minutes spent on the visit: [10] Time with Patient: Less than 30
[2021-12-06] MEDS: ASCORBIC ACID 500 MG TAB PO SCH (12:15)
--- NOTE | 2021-12-06 16:10 | CDI ---
Documentation Clarification Form Date: 12/06/2021 03:45:14 PM From: Barbara Vale RN, CCDS Admit Date: 12/04/2021 04:43:00 PM Patient Name: Nicholas Wright Visit Number: [id number] Discharge Date: ATTENTION: The Clinical Documentation Specialists (CDI) and [facility] Coding Staff appreciate your assistance in clarifying documentation. Please respond to the clarification below the line at the bottom and electronically sign. The CDI & [facility] Coding staff will review the response and follow-up if needed. Please note: Queries are made part of the Legal Health Record. If you have any questions, please contact the author of this message via ITS. Dr. Barbra Celaya Sepsis is documented in the emergency assessment, H/P and subsequent progress notes] and patient is noted to have COVID pneumonia also in the H/P and progress note. Please clarify if there is a relationship between the two diagnoses History/Risk Factors: COVID-19, COPD Clinical Indicators: 76-year-old male present with feeling sick x9 days. Diagnosed with COVID and given steroids and sent home. He returned with worsening shortness. He denies being vaccinated for COVID-19. 12/04 Vital signs: 145/82 113 22 1-2.2 12/04 EKG: Sinus tachycardia at 113 BPM 12/04 CXR: right lower lobe infiltrate consistent with pneumonia 12/04 Labs: WBC 114, NA+ 133, BUN 27, CR 111; lactic acid 3.6 12/05 Pulmonary: Acute hypoxic respiratory failure related to acute COVID-19 infection, and possibility of bacterial superinfection is not entirely excluded. Lactic acidosis, resolved with IV hydration likely related to dehydration, and possible sepsis. Treatment: Cardiac/Telemetry monitoring Decadron 6 NG OI Daily Zinc sulfate 220 MG PO Daily .9NS 1,000 ML bolus then at 100 ML/HR 12/04-12/05 Rocephin 2 GM IVPB Q 24 HRS x4 bags Azithromycin 500 MG IVPB Once (12/04) then 500 MG Daily @ 1800 12/05 Please clarify the relationship, if any, which is clinically appropriate for this patient: [ ] Sepsis due to COVID-19 pneumonia [ ] Sepsis is not due to COVID-19 pneumonia (specify cause) [ ] Other explanation of clinical findings (please specify) [ ] Unable to determine (no explanation for clinical findings) (Template Last Revised: October 2020) Sepsis due to COVID-19 pneumonia with superimposed bacterial pneumonia. MTDD
[2021-12-06] MEDS: AZITHROMYCIN 500 MG TAB PO SCH (17:51)
[2021-12-07] MEDS: SYMBICORT 160-4.5 MCG INHALER INHALATION SCH ×2 (07:27→19:11)
[2021-12-07] MEDS: ENOXAPARIN 40 MG/0.4 ML SYRINGE SQ SCH (08:22)
[2021-12-07] MEDS: TAMSULOSIN 0.4 MG CAP.ER.24H PO SCH (08:22)
[2021-12-07] MEDS: dexAMETHasone 2 MG TAB PO SCH (08:23)
[2021-12-07] MEDS: ASCORBIC ACID 500 MG TAB PO SCH (08:23)
[2021-12-07] MEDS: guaiFENesin 600 MG TABLET.ER PO SCH (08:23)
[2021-12-07] MEDS ORDERED: CHOLECALCIFEROL 125 MCG (5000 IU) TABLET PO SCH (09:00)
[2021-12-07] MEDS ORDERED: ZINC SULFATE 220 MG CAP PO SCH (09:00)
--- NOTE | 2021-12-07 12:08 | P.DS ---
Providers Date of admission: 12/04/21 16:43 Expected date of discharge: 12/07/21 Attending physician: Danielle Huggins MD Consults: 12/05/21 08:05 Consult Physician Routine Consulting Provider: Mario Corona Consult Reason/Comments: COVID 19, COPD Do you want consulting provider notified?: Yes Primary care physician: Anna Lopez MD Hospital Course: Patient is a 76-year-old male with PMH of COPD on 2 L home O2 that presents the ED for shortness of breath and wet cough. Symptoms have been ongoing for the past 7 days. Initially, patient reported rhinorrhea, itchy eyes and sore throat. He is also reported fever/chills, 2 episodes of NBNB nausea and vomiting, diarrhea that has since resolved. Patient reports progressively worsening shortness of breath over the past 7 days. When his symptoms did not improve this prompted him to come to the ED. He denies any headache, lower extremity edema, chest pain, palpitations, changes in urination. No changes in appetite or weight. He denies any dizziness, numbness/weakness/tingling of extremities. In the ED, he had a T-max of 102.2 Fahrenheit, pulse of 113, tachypnea with respiratory rate of 26 and O2 saturation of 89% on room air. He required 4 L NC to maintain O2 saturation greater than 92%. CBC showed leukocytosis of 13.3. CMP showed sodium of 133, chloride of 96, BUN of 27, glucose of 140 and calcium of 8. Troponin was less than 0.012 with EKG showing sinus tachycardia and no ST elevation. Lactic acid was 3.6. COVID-19 positive. Chest x-ray showing possible pneumonia in the right lower lobe. Patient is admitted as inpatient, greater than anticipated 48 hour admission for COVID-19 pneumonia and COPD exacerbation. His lactic acidosis, hyponatremia and elevated BUN resolved with IV hydration. Patient was started on Decadron. He was started on Rocephin and azithromycin for concerns for community-acquired pneumonia. Inflammatory labs were elevated including pro-calcitonin, CRP, ferritin, LDH. His d-dimer was negative. He was given albuterol as needed for shortness of breath and wheezing. He did have some urinary retention which required straight cath. This was thought to be r elated to BPH. He was started on Flomax by mouth and urinalysis was obtained. UA showed moderate blood, negative for nitrite or leukocyte esterase. Pulmonology was consulted and followed the patient during his hospitalization. Pulmonology cleared the patient for discharge on Decadron and Levaquin for 7 more days. DME order was placed for nebulizer. Patient reported urinating freely after initiation of Flomax. He was advised to follow-up with his PCP within 1-2 days of discharge. Follow up with pulmonology in 2 weeks of discharge. He was advised to follow-up with his PCP with regard to hematuria noted on urinalysis and further management of his urinary retention. Patient verbalized understanding of the plan. Patient underwent home O2 eval that showed that he required 2L at rest and 4L with exertion. Initial discharge was held on 12/06 due to shortness of breath with ambulation. Patient was seen and examined on 12/07. Patient reported significant improvement in his breathing. He continues to report shortness of breath with exertion. He was at baseline 2 L NC saturating mid 90s. This complex discharge took about 45 minutes to complete. General: [non toxic], [no distress], [appears at stated age] Derm: [warm], [dry] Head: [atraumatic], [normocephalic], [symmetric] Eyes: [EOMI], [no lid lag], [anicteric sclera] Mouth: [no lip lesion], [mucus membranes moist] Cardiovascular: [S1S2 reg], [no murmur] Lungs: [Decreased breath sounds bilateral], [no rhonchi, no rales] , [no accessory muscle use] Ext: [no gross muscle atrophy], [no edema], [no contractures] Neuro: [no focal neuro deficits] Psych: [Alert], [oriented], [appropriate affect] Discharge Diagnosis: #Acute on chronic hypoxic respiratory failure #Sepsis #COVID-19 pneumonia #COPD exacerbation #Urinary retention #Hematuria Resolved: Lactic acidosis, Hyponatremia, Elevated BUN Pertinent Studies: Chest X ray EKG Patient Condition at Discharge: Stable Plan - Discharge Summary New Discharge Prescriptions: New Levofloxacin [Levaquin] 750 mg PO DAILY 7 Days #7 tab dexAMETHasone ORAL [Hexadrol] 6 mg PO DAILY tab Ipratropium-Albuterol Nebulize [Duoneb 0.5 mg-3 mg/3 ml Soln] 3 ml INHALATION TID PRN #90 ml PRN Reason: Shortness Of Breath Dexamethasone [Decadron] 6 mg PO DAILY 7 Days #7 tablet Tamsulosin [Flomax] 0.4 mg PO PC-BRKFST #30 guaiFENesin [Mucinex] 600 mg PO Q12HR #14 tablet Continue Budesonide/Formoterol Fumarate [Symbicort 160-4.5 Mcg Inhaler] 2 puff INHALATION RT-BID Albuterol Sulfate [Albuterol Sulfate Hfa] 1 puff INHALATION RT-Q4H PRN PRN Reason: Shortness Of Breath Discharge Medication List Albuterol Sulfate [Albuterol Sulfate Hfa] 1 puff INHALATION RT-Q4H PRN 12/04/21 [History] Budesonide/Formoterol Fumarate [Symbicort 160-4.5 Mcg Inhaler] 2 puff INHALATION RT-BID 12/04/21 [History] Dexamethasone [Decadron] 6 mg PO DAILY 7 Days #7 tablet 12/06/21 [Rx] Ipratropium-Albuterol Nebulize [Duoneb 0.5 mg-3 mg/3 ml Soln] 3 ml INHALATION TID PRN #90 ml 12/06/21 [Rx] Levofloxacin [Levaquin] 750 mg PO DAILY 7 Days #7 tab 12/06/21 [Rx] Tamsulosin [Flomax] 0.4 mg PO PC-BRKFST #30 12/06/21 [Rx] dexAMETHasone ORAL [Hexadrol] 6 mg PO DAILY tab 12/06/21 [Rx] guaiFENesin [Mucinex] 600 mg PO Q12HR #14 tablet 12/06/21 [Rx] Follow up Appointment(s)/Referral(s): Mario Corona MD [STAFF PHYSICIAN] - 01/05/22 2:30 pm Anna Lopez MD [Primary Care Provider] - 12/15/21 10:00 am [facility], [NON-STAFF] - As Needed Activity/Diet/Wound Care/Special Instructions: Nebulizer ordered through [facility]. Nebulizer in pharmacy. Diet: Regular FU with your PCP within 1-2 days of discharge. FU with Pulmonology within 2 weeks of discharge. Take all medications as advised. Come back to the ED for worsening Shortness of breath, O2 saturation < 88% (while on your 2L home O2) that does not improve with rest. Follow up with your PCP for further workup for blood in your urine and difficulty urinating. Discharge Disposition: HOME SELF-CARE
[2021-12-07 16:21] VITALS: BP 158/89; PULSE 98; RESP 18; TEMP 98.7
== END 2021-12-07 21:22 | disposition home health service (06) | DRG 871 ==
LOC: EC 15:03 → 4SSUR 16:43
PROVIDERS: ADMIT Internal Medicine; ATTEND Internal Medicine
DX: A41.89 Other specified sepsis (principal); U07.1 COVID-19; J12.82 Pneumonia due to coronavirus disease 2019; J15.9 Unspecified bacterial pneumonia; J96.21 Acute and chronic respiratory failure with hypoxia; E87.1 Hypo-osmolality and hyponatremia; E87.2 Acidosis; J44.0 Chronic obstructive pulmonary disease with (acute) lower respiratory infection; J44.1 Chronic obstructive pulmonary disease with (acute) exacerbation; E86.0 Dehydration; Z28.310 Unvaccinated for COVID-19; Z79.51 Long term (current) use of inhaled steroids; Z99.81 Dependence on supplemental oxygen; N40.1 Benign prostatic hyperplasia with lower urinary tract symptoms; R33.8 Other retention of urine; R31.9 Hematuria, unspecified; Z79.899 Other long term (current) drug therapy
CPT/HCPCS: 36415; 71045; 71046; 80048; 80053; 81001; 82728; 83605; 83615; 84145; 84484; 85025; 85379; 86140; 87040; 87070; 87205; 87635; 93005; 94640; 96361; 96365; 99291

== ENCOUNTER 2021-12-19 21:59 | Emergency (ER) | payer MEDICARE ==
[2021-12-19 22:16] VITALS: BP 104/67; PULSE 112; RESP 20; TEMP 98.7
[2021-12-19 22:56] LABS: Appearance,Urine Clear (Clear); Bilirubin,Urine Negative (Negative); Blood,Urine Negative (Negative); Color,Urine Yellow; Glucose,Urine (UA) Negative (Negative); Ketones,Urine 2+ (Negative); Leukocyte Esterase,Urine Negative (Negative); Nitrite,Urine Negative (Negative); PH, Urine 6.5 (5.0-8.0); Protein,Urine Trace (Negative); Specific Gravity,Urine 1.017 (1.001-1.035); Urobilinogen,Urine <2.0 mg/dL (<2.0)
== END 2021-12-19 23:35 | disposition left against medical advice (07) ==
LOC: EC 21:59
DX: Z53.21 Procedure and treatment not carried out due to patient leaving prior to being seen by health care provider (principal)
CPT/HCPCS: 81003